=== PATIENT | female | born 1960 | race African-American/Black ===

== ENCOUNTER 2021-06-13 12:50 | Emergency (ER) | payer MEDICARE ==
[2021-06-13] MEDS: Ketorolac 60 MG/2 ML SDV IM ONE (13:17)
[2021-06-13] MEDS: Ketorolac 60 MG/2 ML SDV ONE (13:20)
== END 2021-06-13 14:25 | disposition home or self-care (01) ==
LOC: LB.ED 12:50
DX: M25.561 Pain in right knee (principal); G89.29 Other chronic pain; E78.00 Pure hypercholesterolemia, unspecified; I10 Essential (primary) hypertension; Z90.710 Acquired absence of both cervix and uterus; Z79.899 Other long term (current) drug therapy
CPT/HCPCS: 73560; 96372; 99283; J1885

== ENCOUNTER 2022-04-04 11:13 | Emergency (ER) | payer MEDICARE ==
[2022-04-04] MEDS ORDERED: Ketorolac 60 MG/2 ML SDV IM ONE (11:41)
[2022-04-04] MEDS ORDERED: Ketorolac 60 MG/2 ML SDV ONE (12:01)
[2022-04-04] MEDS ORDERED: Acetaminophen/HYDROcodone 325-5 MG Tab PO ONE (14:22)
[2022-04-04] MEDS: methylPREDNISolone Sodium Succinate 125 MG/2 ML SDV IM ONE ×2 (14:35→14:43)
[2022-04-04] MEDS ORDERED: methylPREDNISolone Sodium Succinate 125 MG/2 ML SDV ONE (14:39)
== END 2022-04-04 15:25 | disposition home or self-care (01) ==
LOC: LB.ED 11:13
DX: M25.561 Pain in right knee (principal); G89.29 Other chronic pain; E78.00 Pure hypercholesterolemia, unspecified; I10 Essential (primary) hypertension; Z79.899 Other long term (current) drug therapy
CPT/HCPCS: 73562-50; 96372; 99283; A9270-GY; J1885; J2930

== ENCOUNTER 2023-06-10 08:04 | Emergency (ER) | payer MEDICARE | END 2023-06-10 09:10 | disposition home or self-care (01) | LOC: LB.ED 08:04 | DX: M26.643 Arthritis of bilateral temporomandibular joint (principal); I10 Essential (primary) hypertension; Z79.899 Other long term (current) drug therapy; E66.9 Obesity, unspecified; Z68.38 Body mass index [BMI] 38.0-38.9, adult; Z87.891 Personal history of nicotine dependence | CPT/HCPCS: 99283 ==

== ENCOUNTER 2023-09-30 09:44 | Emergency (ER) | payer MEDICARE, MEDICAID ==
[2023-09-30 10:11] VITALS: BP 124/85; PULSE 69
[2023-09-30] MEDS: Orphenadrine 60 MG/2 ML Inj IM ONE (10:22)
[2023-09-30] MEDS: Orphenadrine 60 MG/2 ML Inj ONE (10:24)
[2023-09-30] MEDS: Ketorolac 30 MG/ML SDV ONE (10:24)
[2023-09-30] MEDS: Ketorolac 30 MG/ML SDV IM ONE (10:25)
[2023-09-30] MEDS: Gabapentin 100 MG Cap PO ONE (10:54)
[2023-09-30] MEDS: Gabapentin 100 MG Cap ONE (10:57)
== END 2023-09-30 11:05 | disposition home or self-care (01) ==
LOC: LB.ED 09:44
DX: M54.10 Radiculopathy, site unspecified (principal); S16.1XXA Strain of muscle, fascia and tendon at neck level, initial encounter; I10 Essential (primary) hypertension; E78.00 Pure hypercholesterolemia, unspecified; E66.9 Obesity, unspecified; Z68.41 Body mass index [BMI] 40.0-44.9, adult; Z90.710 Acquired absence of both cervix and uterus; Z79.899 Other long term (current) drug therapy; X58.XXXA Exposure to other specified factors, initial encounter
CPT/HCPCS: 72040; 96372; 99283; A9270-GY; J1885; J2360

== ENCOUNTER 2023-10-05 10:47 | Emergency (ER) | payer MEDICARE, MEDICAID ==
[2023-10-05] MEDS: Ketorolac 30 MG/ML SDV IM ONE (11:57)
[2023-10-05] MEDS: Ketorolac 30 MG/ML SDV ONE (12:29)
[2023-10-05] MEDS ORDERED: Cyclobenzaprine 10 MG Tab ONE (13:04)
[2023-10-05] MEDS: Cyclobenzaprine 10 MG Tab PO ONE (13:08)
== END 2023-10-05 14:08 | disposition home or self-care (01) ==
LOC: LB.ED 10:47
DX: M54.12 Radiculopathy, cervical region (principal); I10 Essential (primary) hypertension; E78.00 Pure hypercholesterolemia, unspecified; E66.9 Obesity, unspecified; Z90.710 Acquired absence of both cervix and uterus; Z79.899 Other long term (current) drug therapy
CPT/HCPCS: 36415; 72125; 85379; 96372; 99284; A9270; J1885